=== PATIENT | male | born 1975 | race Caucasian/White ===

== ENCOUNTER 2018-12-04 21:32 | Observation (INO) ==
[2018-12-04] MEDS ORDERED: NS 1,000 ML IV ONE (23:39)
[2018-12-04] MEDS ORDERED: TORADOL IV ONE (23:40)
[2018-12-04] MEDS ORDERED: SODIUM CHLORIDE 0.9% INJ ONE (23:40)
[2018-12-04] MEDS ORDERED: ZOFRAN IV ONE (23:40)
[2018-12-04] MEDS ORDERED: NEXIUM IV ONE (23:40)
[2018-12-05] MEDS ORDERED: PEPCID IV ONE (00:06)
[2018-12-05] MEDS ORDERED: SODIUM CHLORIDE 0.9% INJ ONE (00:06)
[2018-12-05 00:47] LABS: BASO# 0.02 X1000 (0.0-0.2); BASO% 0.1 % (0.0-0.8); EOS# 0.05 X1000 (0.0-0.7); EOS% 0.3 % (0.0-10.0); HEMATOCRIT 47.2 % (42.0-52.0); HEMOGLOBIN 16.3 g/dL (14.0-18.0); IMM GRAN# 0.03 X1000 (0.0-0.04); IMM GRAN% 0.2 % (0.0-0.5); LYMPH# 0.46 X1000 (1.2-3.4); LYMPH% 2.7 % (20.5-51.1); MCH 30.3 PG (27-31); MCHC 34.5 g/dL (33-37); MCV 87.7 FL (81-99); MONO# 0.81 X1000 (0.11-0.59); MONO% 4.8 % (1.7-9.3); MPV 9.8 FL (7.4-10.4); NEUT# 15.45 X1000 (1.4-6.5); NEUT% 91.9 % (42.2-75.2); PLT 267 X1000 (130-400); RBC 5.38 XMIL (4.7-6.1); RDW 12.9 % (11.5-14.5); WBC 16.82 X1000 (4.8-10.8)
[2018-12-05 01:12] LABS: AGAP 12; ALB/GLOB RATIO 2.5; ALBUMIN 4.8 g/dL (3.5-5.0); ALKALINE PHOSPHATASE 79 U/L (32-122); BUN 18 mg/dL (8-22); CALCIUM 9.6 mg/dL (8.8-10.2); CHLORIDE 104 mmol/L (98-107); CK PROFILE 147 U/L (24-204); COSMO 284; CREATININE 0.9 mg/dL (0.7-1.2); ESTIMATED GFR > 60; GLUCOSE 116 mg/dL (70-104); GOT 16 U/L (10-34); GPT 13 U/L (10-44); POTASSIUM 4.5 mmol/L (3.5-5.1); SODIUM 141 mmol/L (136-145); TCO2 25 mmol/L (25-35); TOTAL BILIRUBIN 0.58 mg/dL (0.20-1.00); TOTAL PROTEIN 6.7 g/dL (6.3-8.3)
[2018-12-05] MEDS ORDERED: ROCEPHIN 1 GM in NS 50 ML IV ONE (01:45)
[2018-12-05] MEDS ORDERED: DOXYCYCLINE 200 MG in NS 250 ML IV ONE (01:53)
--- NOTE | 2018-12-05 02:00 | PROVIDER DOCUMENTATION ---
This chart was entered by Areli Bob Scribe, acting as scribe for Sole Moody MD. HPI-Syncope/Dizziness - General Chief Complaint: Syncope Stated Complaint: PASSED OUT AT WORK Time Seen by Provider: 12/04/18 23:20 Source: patient, family Allergies/Adverse Reactions: Patient Allergies Allergy/AdvReac Type Severity Reaction Status Date / Time codeine Allergy Mild ITCHING Verified 12/05/18 00:14 morphine Allergy Mild ITCHING Verified 12/05/18 00:14 Home Medications: Home Medication List Medication Instructions Recorded Confirmed Last Taken Type Hydrocodone/Acetaminophen [[place] 1 each PO 4XDAY 12/26/13 01/25/17 01/24/17 09:00 History 10-325 Tablet] Pantoprazole [Protonix] 40 mg PO DAILY@0700 #30 tablet 01/25/17 Unknown Rx - History of Present Illness-Syncope/Dizzy Nature of Presenting Problem: 42 y/o male presents to ED with syncope onset this afternoon. Pt reports he was outside working in the heat. passed out in for 10mins. brought in by his son to cool area. then this evening pt states he has experienced body aches, chills, headache, and N/V since the episode. Pt is alert and oriented. If witnessed syncope, by whom?: coworkers Prior Episodes: reports: no prior history Onset/Duration: reports: this afternoon Timing: reports: still present Position/Activity at time of episode: reports: standing Symptoms prior to episode: reports: none Context: reports: lost consciousness Loss of Consciousness: brief (seconds) Location of injury. (If syncope resulted in an injury.): reports: none Current Symptoms: reports: chills, nausea, vomiting, headache Recently Seen Here or By Another Healthcare Provider: No Review of Systems - Adult - REVIEW OF SYSTEMS - ADULT Constitutional: reports: chills. denies: fever Eyes: reports: no symptoms reported Ears, Nose, Mouth & Throat: reports: no symptoms reported Cardiovascular: denies: chest pain, palpitations Respiratory: denies: cough, shortness of breath Gastrointestinal: reports: nausea, vomiting. denies: abdominal pain, diarrhea Genitourinary: reports: no symptoms reported Musculoskeletal: reports: other (body aches). denies: back pain, joint pain Integumentary: reports: no symptoms reported Neurological: reports: headache/migraines, syncope. denies: dizziness/vertigo, seizure Psychiatric: reports: no symptoms reported Endocrine: reports: no symptoms reported Hematologic/Lymphatic: reports: no symptoms reported Allergic/Immunologic: reports: no symptoms reported All Other Systems: Reviewed and Negative Past History - Adult - PAST MEDICAL HISTORY-ADULT Review of Records: reports: Old Records Reviewed, Nursing Assessment Review, Medications Reviewed Major Childhood Illnesses: reports: denies history Cardiovascular: reports: denies history Respiratory: reports: denies history Gastrointestinal: reports: GERD Obstetrical/Gynecological: reports: denies history Genitourinary: reports: denies history Musculoskeletal: reports: chronic pain (neck and back pain), neck/back injury Neurological: reports: denies history Endocrine/Immune: reports: denies history Other Conditions: reports: denies history - PRIOR SURGERIES/PROCEDURES Surgical/Procedure History: reports: orthopedic (extremity), back/neck - IMMUNIZATION STATUS Childhood Immunizations: See Nurse Assessment Flu Vaccine: See Nurse Assessment - FAMILY HISTORY Family History: reviewed, not pertinent - SOCIAL HISTORY Smoking: greater than 1 pack/day Provider spent 3-5 mins advising pt. on dangers of tobacco.: Discussed manners to quit use, and f/u contacts for add'l counseling. Substance Use: none/never Alcohol Use Frequency: never Living Situation: family Physical Exam-General - PHYSICAL EXAM-ADULT Initial Vital Signs Reviewed: Yes - CONSTITUTIONAL General Appearance: appears well, alert, no apparent distress - EYES Eyes: PERRL/EOMI, pink conjunctivae - HEAD, EARS, NOSE, MOUTH & THROAT HENMT: normocephalic/atraumatic, normal ENT inspection. negative: moist mucous membranes (dry) - NECK Neck: non-tender, full range of motion - RESPIRATORY Respiratory: chest non-tender, lungs clear, normal breath sounds - CARDIOVASCULAR Cardiovascular: normal peripheral pulses, regular rate, rhythm - GASTROINTESTINAL (ABDOMEN) Abdominal Exam: normal bowel sounds, soft, tenderness (epigastric) - MUSCULOSKELETAL Back Exam: normal inspection, no CVA tenderness, no vertebral tenderness Extremity: normal range of motion, non-tender, normal gait - SKIN Integumentary: normal color, warm/dry - NEUROLOGIC Neurologic: order puller II-XII nml as tested, grossly normal, no motor/sensory deficits - PSYCHIATRIC Psych/Mental Status: normal mood/affect, normal thought content, normal thought process, oriented x 3 Progress - PLAN OF CARE/RESULTS Progress/Plan/Lab Results: Vital Signs - 8 hr 12/04/18 21:54 Temperature 97.8 F Pulse Rate 87 Respiratory Rate 20 Blood Pressure 131/77 O2 Sat by Pulse Oximetry 100 12/05/18 00:07 Influenza Screen - Final Nasopharyngeal Laboratory Results - last 24 hr 12/04/18 12/05/18 12/05/18 22:11 00:07 00:07 WBC 16.82 H RBC 5.38 Hgb 16.3 Hct 47.2 MCV 87.7 MCH 30.3 MCHC 34.5 RDW Std Deviation 12.9 Plt Count 267 MPV 9.8 Immature Gran % (Auto) 0.2 Neut % (Auto) 91.9 H Lymph % (Auto) 2.7 L Starke % (Auto) 4.8 Eos % (Auto) 0.3 Baso % (Auto) 0.1 Immature Gran # (Auto) 0.03 Neut # (Auto) 15.45 H Lymph # (Auto) 0.46 L Starke # (Auto) 0.81 H Eos # (Auto) 0.05 Baso # (Auto) 0.02 Sodium 141 Potassium 4.5 Chloride 104 Carbon Dioxide 25 Anion Gap 12 BUN 18 Creatinine 0.9 Estimated GFR/1.73 m2 > 60 BUN/Creatinine Ratio 20 Glucose 116 H POC Glucose 108 H Calculated Osmolality 284 Calcium 9.6 Total Bilirubin 0.58 AST 16 ALT 13 Alkaline Phosphatase 79 Creatine Kinase 147 Troponin T Total Protein 6.7 Albumin 4.8 Globulin 1.9 Albumin/Globulin Ratio 2.5 12/05/18 00:07 WBC RBC Hgb Hct MCV MCH MCHC RDW Std Deviation Plt Count MPV Immature Gran % (Auto) Neut % (Auto) Lymph % (Auto) Starke % (Auto) Eos % (Auto) Baso % (Auto) Immature Gran # (Auto) Neut # (Auto) Lymph # (Auto) Starke # (Auto) Eos # (Auto) Baso # (Auto) Sodium Potassium Chloride Carbon Dioxide Anion Gap BUN Creatinine Estimated GFR/1.73 m2 BUN/Creatinine Ratio Glucose POC Glucose Calculated Osmolality Calcium Total Bilirubin AST ALT Alkaline Phosphatase Creatine Kinase Troponin T < 0.010 Total Protein Albumin Globulin Albumin/Globulin Ratio Orders Category Date Time Status Cardiac Monitoring DIRECTED Care 12/05/18 01:46 Active IV Insertion ORDERED Care 12/05/18 01:46 Active Notify MD of + Sepsis Screen NOW Care 12/05/18 01:46 Active Notify Physician As Ordered Care 12/05/18 01:46 Active CHEST-1 VIEW [RAD] Stat Exams 12/05/18 01:[address] HEAD W/O CONTRAST [CT] Stat Exams 12/04/18 23:39 Taken BLOOD CULTURE [BLDCUL] Stat Lab 12/05/18 01:46 Uncollected CBC WITH DIFF [HEME] Stat Lab 12/05/18 00:07 Completed CK PROFILE [SP CHEM] Stat Lab 12/05/18 00:07 Completed COMPREHENSIVE METABOLIC PANEL [CHEM] Stat Lab 12/05/18 00:07 Completed Flu Swab [INFLUENZA SCREEN A/B] Stat Lab 12/05/18 00:07 Completed LACTATE, PLASMA [CHEM] Q3H Lab 12/05/18 02:00 Uncollected LACTATE, PLASMA [CHEM] Q3H Lab 12/05/18 05:00 Uncollected LACTATE, PLASMA [CHEM] Q3H Lab 12/05/18 08:00 Uncollected MAGNESIUM [CHEM] Stat Lab 12/05/18 01:46 Uncollected PROTIME WITH INR [COAG] Stat Lab 12/05/18 01:46 Uncollected PTT [COAG] Stat Lab 12/05/18 01:46 Uncollected TROPONIN T Stat Lab 12/05/18 00:07 Completed URINALYSIS W/POSS RFLX CULT [URINALYSIS] Stat Lab 12/04/18 23:39 Uncollected URINE DRUG SCREEN Stat Lab 12/04/18 23:39 Uncollected 0.9% Sodium Chloride Inj [Ns] 1,000 ml Med 12/04/18 23:39 Discontinued IV 999 mls/hr CefTRIAXONE [Rocephin] 1 gm Med 12/05/18 01:45 Stop Req 0.9% Sodium Chloride Inj [Ns] 50 ml IV NOW Doxycycline 200 mg Med 12/05/18 01:53 Ordered 0.9% Sodium Chloride Inj [Ns] 250 ml IV NOW Famotidine [Pepcid] Med 12/05/18 00:06 Discontinued 20 mg IV NOW ONE Ketorolac [Toradol] Med 12/04/18 23:40 Discontinued 30 mg IV NOW ONE Ondansetron [Zofran] Med 12/04/18 23:40 Discontinued 4 mg IV NOW ONE Sodium Chloride 0.9% Med 12/05/18 00:06 Discontinued 5 - 10 ml INJ NOW ONE Sodium Chloride 0.9% Med 12/04/18 23:40 Discontinued 5 ml INJ NOW ONE Oxygen Device Stat Oth 12/05/18 01:46 Active EKG [EKG] Stat Ther 12/04/18 21:59 Ordered Result Diagrams: 12/05/18 00:07 12/05/18 00:07 - REASSESSMENT Reassessment #1 Time Reassessed: 01:53 Status: improving (with abd pain but the headache persists. reports pt had 2 tick bites and s/p removal yesterday, will prophylactically pt with doxycycline. will observe pt.) - EKG 1 Time of EKG reading by physician:: 01:58 EKG Read and Signed by:: Sole Moody EKG Interpretation (*Must complete 3 of following elements*): Normal Rate: 82 Rhythm: nsr with sinus arrhythmia [place]: normal QRS: normal GA Interval: normal ST Wave: normal - XRAY 1 XRAY Study: Chest Impression: See EMR Report - CT/MRI 1 CT Study: Cervical Spine, Head Impression: See EMR Report (IMPRESSION: 1. No acute intracranial hemorrhage or process identified. 2. Acute right maxillary sinusitis. Small maxillary retention cysts are also seen. -radiology report) - CONSULTS/PCP/HOSPITALIST Notification #1 *Consult/PCP/Hospitalist*: dr. Ramirez Time Discussed: 01:59 (heat exhaustion and syncope) Consult Disposition: Admit Departure - Departure Date of Disposition Decision: 12/05/18 Time of Disposition Decision: 01:54 DIAGNOSIS: Heat exhaustion, Syncope Disposition: ADMITTED INPATIENT 09 Certified Medical Emergency: Emergent Condition: Stable Referrals and Follow-Ups: None,PCP [Primary Care Provider] - Call for Appoint. 1-2days Discharge Education: Steps to Quit Smoking, [id number] - Critical Care Note This patient required my direct & personal management of CC.: No Attestation - Physician/ JAMIL Attestation Patient care was provided by Advanced Practice Provider:: No The physician spent face to face time with patient:: Yes Advanced Practice Provider documentation review:: Supervising physician onsite and consulted in the evaluation and care of this patient. The physician did have a face to face encounter with the patient. This chart was documented by the indicated scribe, (Areli Bob, Scribe) and accurately reflects the services I performed and decisions made by me, Sole Moody MD, as attested by the provider's signature.
[2018-12-05] MEDS ORDERED: TYLENOL PO PRN (03:28)
[2018-12-05] MEDS: NS 1,000 ML IV SCH ×2 (04:54→16:51)
--- NOTE | 2018-12-05 06:28 | Diag Imaging Result Doc PS360 ---
CHEST-1 VIEW - 12/05/2018 INDICATION: infection COMPARISON: 01/25/2017 FINDINGS: The lungs are normally expanded and clear. Heart size and mediastinal contours are normal. No pneumothorax or pleural effusion. IMPRESSION: Negative exam. Electronically signed by Yossi Dunbar 12/05/2018 6:26 AM
--- NOTE | 2018-12-05 06:48 | HISTORY AND PHYSICAL ---
CHIEF COMPLAINT: Syncope. 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 He was at the job site yesterday working in the heat when he became dizzy, felt as if he passed out. Apparently he had a 10-second episode where he had loss of consciousness. He stated that his son helped him to a cool area. He started having body aches, chills and headache and nausea and vomiting times a couple episodes. He came into the emergency room. He was afebrile. Vital signs were within normal limits. He was alert and oriented times 3. Chest x- ray showed no acute disease. Did have mildly elevated white blood cell count of 16.82 which is likely reactive. He told the ER provider that he was bitten by two ticks at the worksite. Apparently she was concerned for possibly Lyme disease, gave him doxycycline. At any rate, will admit the patient in observation status for further evaluation and treatment. PAST MEDICAL HISTORY: Denies. PREVIOUS SURGICAL HISTORY: Lumbar spine and neck surgery. ALLERGIES: Codeine and morphine. HOME MEDICATION: Denies. FAMILY HISTORY: States his father , that he had schizophrenia and was a heavy drinker. Denies any other chronic illness. SOCIAL HISTORY: Smoke a pack a day. No alcohol. No illicit drugs. REVIEW OF SYSTEMS: Fourteen-point review of systems conducted with the patient. Pertinent positives listed above in the HPI. All other systems reviewed and found to be negative. PHYSICAL EXAMINATION: VITAL SIGNS: Temperature 98.7, pulse 61, respirations 18, blood pressure 103/65, oxygen saturation 100% on room air. GENERAL: A 42-year-old male lying in the ER stretcher, answers all questions appropriately, he is alert and oriented times 3, in no acute distress. HEENT: Head is atraumatic, normocephalic. Pupils equal, round, reactive to light. Extraocular eye movement is intact. Sclerae are anicteric. Conjunctiva is pink. Oral mucosa is dry. NECK: Supple. No JVD. No thyromegaly. Trachea is midline. No cervical lymphadenopathy. CARDIAC: S1, S2 appreciated. No murmurs, gallops, rubs. LUNGS: Clear to auscultation bilaterally. No rhonchi, wheeze, rales. Symmetric rise and fall with respirations. ABDOMEN: Soft, nondistended, nontender. Bowel sounds present in all 4 quadrants. Normoactive. No pulsatile mass, no organomegaly. SKIN: Warm, dry and intact. No acute lesions or rash. No Bullseye shaped rashes at the site where the ticks had been. NEUROLOGICAL: Alert and oriented times 3. Cranial nerves II through XII grossly intact. EXTREMITIES: No clubbing, cyanosis or edema. Two-plus pedal pulses. DIAGNOSTIC DATA: Chest x-ray: No acute disease. LABORATORY DATA: WBC 16.82. Chemistry panel within normal limits other than a glucose of 116. ASSESSMENT AND PLAN: 1. Heat related illness. Patient was given fluids in the emergency room. Will continue gentle fluid hydration. 2. Nausea and vomiting. Zofran as needed. 3. Tobacco abuse. Will give 21 mg nicotine patch daily. 4. Leukocytosis. This is of unknown etiology. Patient was given doxycycline and Rocephin in the emergency room. The ER provider had noted this was prophylactic related to the tick bites. Will continue doxycycline and 10-day Lyme disease panel. However, the patient did not have any symptoms that feel consistent with Lyme disease. Patient will be admitted to the Medical Floor in observation status where he should be able to go home today. Further recommendations per patient clinical course. Dictated by PAMELA Stevens for Flako Ramirez MD I have performed a face to face diagnostic evaluation. Labs/ xrays- reviewed. Exam- chest- clear, CV- regular. A/P- Heat Exhaustion- Admit, symptomatic treatment, IV fluids, antiemetics. Dr. Ramirez cc: PAMELA Stevens MD [facility]
--- NOTE | 2018-12-05 07:18 | EKG Report ---
Test Performed on : 12/04/2018 10:03:55 PM Test Reason : SYNCOPE Blood Pressure : / mmHG Vent. Rate : 082 BPM Atrial Rate : 082 BPM P-R Int : 184 ms QRS Dur : 096 ms QT Int : 354 ms P-R-T Axes : 058 028 060 degrees QTc Int : 413 ms Normal sinus rhythm. with sinus arrhythmia. Normal ECG When compared with ECG of 25-JAN-2017 08:13, No significant change was found Unconfirmed Result
--- NOTE | 2018-12-05 08:27 | Diag Imaging Result Doc PS360 ---
EXAM: CT HEAD W/O CONTRAST INDICATION: syncope TECHNIQUE: This exam was performed using automated exposure control, adjustment of mA or kV according to patient size, and/or use of iterative reconstruction technique. COMPARISON: None. FINDINGS: There is no definite acute infarct given the limited sensitivity of CT versus MRI. There is no discrete intracranial mass, mass effect, or intracranial hemorrhage. There is a moderate-sized right maxillary sinus mucus retention cyst and a small left maxillary sinus mucus retention cyst. There is an air-fluid level in the right maxillary sinus suggesting a possible component of acute sinusitis. Surrounding soft tissues and bony structures are essentially unremarkable, otherwise. IMPRESSION: 1.No evidence of acute intracranial pathology. 2.Maxillary sinus mucus retention cysts and possible superimposed acute right maxillary sinusitis. Please correlate clinically. Electronically signed by Aron Flores 12/05/2018 8:24 AM
[2018-12-05 09:19] LABS: UR AMPHETAMINES QUAL NONE DETECTED (NONE DETECT); UR BARBITUATES QUAL NONE DETECTED (NONE DETECT)
[2018-12-05 09:20] LABS: UR BENZODIAZEPIN QUAL PRESUMPTIVE POSITIVE (NONE DETECT); UR CANNABINOIDS QUAL PRESUMPTIVE POSITIVE (NONE DETECT); UR COCAINE QUAL NONE DETECTED (NONE DETECT); UR METHADONE QUAL NONE DETECTED (NONE DETECT); UR OPIATES QUAL PRESUMPTIVE POSITIVE (NONE DETECT); UR OXYCODONE QUAL NONE DETECTED (NONE DETECT); UR PCP QUAL NONE DETECTED (NONE DETECT)
[2018-12-05] MEDS: DOXYCYCLINE PO SCH ×2 (09:39→20:53)
[2018-12-05] MEDS: AUGMENTIN PO SCH ×2 (09:39→20:52)
[2018-12-05] MEDS: NICODERM PATCH TD SCH ×2 (09:41→18:01)
[2018-12-05 11:13] LABS: INR 0.97; PROTIME 13.7 Seconds (11.0-16.0); PTT 28.4 Seconds (22.3-41.8)
[2018-12-05 11:15] LABS: UR EPITHELIAL CELLS <10 /HPF (<10); URINE BACTERIA NEGATIVE /HPF; URINE RBC <10 /HPF (<10); URINE SOURCE CLEAN CATCH; URINE WBC <10 /HPF (<10)
[2018-12-05 11:16] LABS: COLOR YELLOW; TURBIDITY URINE CLEAR (CLEAR)
[2018-12-05 11:17] LABS: BILIRUBIN URINE SMALL (NEGATIVE); BLOOD URINE NEGATIVE (NEGATIVE); GLUCOSE URINE TRACE mg/dL (NEGATIVE); KETONE URINE 40 mg/dL (NEGATIVE); LEUKOCYTES URINE NEGATIVE (NEGATIVE); NITRITE URINE NEGATIVE (NEGATIVE); PH URINE 5.5; PROTEIN URINE 30 mg/dL (NEGATIVE); SP GRAVITY URINE 1.042; UROBILINOGEN URINE 2 mg/dL (NORMAL)
[2018-12-05] MEDS: ZOFRAN IV PRN ×2 (12:25→18:01)
[2018-12-05] MEDS: NORCO-10 PO SCH (20:52)
[2018-12-05] MEDS: LYRICA PO SCH (20:53)
[2018-12-06] MEDS: NS 1,000 ML IV SCH (06:07)
[2018-12-06 08:11] LABS: AGAP 8; BUN 13 mg/dL (8-22); CALCIUM 8.4 mg/dL (8.8-10.2); CHLORIDE 106 mmol/L (98-107); COSMO 277; CREATININE 0.8 mg/dL (0.7-1.2); ESTIMATED GFR > 60; GLUCOSE 95 mg/dL (70-104); POTASSIUM 3.9 mmol/L (3.5-5.1); SODIUM 139 mmol/L (136-145); TCO2 25 mmol/L (25-35)
[2018-12-06 08:12] LABS: BASO# 0.02 X1000 (0.0-0.2); BASO% 0.2 % (0.0-0.8); EOS# 0.17 X1000 (0.0-0.7); HEMATOCRIT 41.2 % (42.0-52.0); HEMOGLOBIN 13.8 g/dL (14.0-18.0); IMM GRAN# 0.02 X1000 (0.0-0.04); IMM GRAN% 0.2 % (0.0-0.5); LYMPH# 1.36 X1000 (1.2-3.4); LYMPH% 15.8 % (20.5-51.1); MCH 30.3 PG (27-31); MCHC 33.5 g/dL (33-37); MCV 90.4 FL (81-99); MONO% 8.1 % (1.7-9.3); MPV 10.1 FL (7.4-10.4); NEUT# 6.33 X1000 (1.4-6.5); NEUT% 73.7 % (42.2-75.2); PLT 218 X1000 (130-400); RBC 4.56 XMIL (4.7-6.1)
[2018-12-06] MEDS: AUGMENTIN PO SCH (08:30)
[2018-12-06] MEDS: NORCO-10 PO SCH ×2 (08:30→12:38)
[2018-12-06] MEDS: DOXYCYCLINE PO SCH (08:30)
[2018-12-06] MEDS: LYRICA PO SCH (08:30)
[2018-12-06] MEDS: NICODERM PATCH TD SCH (08:31)
[2018-12-06] MEDS ORDERED: VOLTAREN 1% GEL TOP SCH (09:00)
[2018-12-06] MEDS ORDERED: ZANTAC PO SCH (09:00)
[2018-12-06 12:47] VITALS: BP 124/76
[2018-12-06 14:09] LABS: LYME DISEASE SCREEN SEE COMMENTS
--- NOTE | 2018-12-08 13:41 | DISCHARGE SUMMARY ---
ADMISSION DATE: 12/05/2018 DISCHARGE DATE: 12/06/2018 FINAL DISCHARGE DIAGNOSES: 1. Syncope secondary to dehydration. 2. Dehydration. 3. Leukocytosis likely stress induced. 4. Acute maxillary sinusitis. 5. Gastroesophageal reflux disease. HOSPITAL COURSE: Mr. Skelton is a 42-year-old male with a history of prior back and neck surgery, who presented to the ER after having a syncopal episode. The patient was noted to be dehydrated on admission and was started on IV fluids. He was also noted to have a leukocytosis. A CT of the head was done that revealed maxillary sinusitis and the patient was started on Augmentin. The patient also had tick bites on his back that were itchy, but there was no evidence of erythema migrans seen. The patient was admitted to observation and hydrated. The following morning the patient's laboratory values were noted to be within normal limits and the patient was back to his baseline level of function. The patient was ultimately cleared for discharge home on 12/06/2018. DISCHARGE MEDICATIONS: 1. Zantac 150 mg p.o. daily. 2. Lyrica 75 mg oral twice a day. 3. Probiotic 1 tab oral twice a day. 4. Doxycycline 100 mg oral twice a day. 5. Augmentin 875 mg oral every 12 hours x7 days. 6. Wilton 10/325 one tab oral 4 times a day. DISCHARGE DIET: Regular diet. ACTIVITY: As tolerated. FOLLOWUP INSTRUCTIONS: The patient will need to follow up with his primary care physician in 1 week. cc: Amna Moore MD
== END 2018-12-06 12:49 | disposition home or self-care (01) ==
LOC: ED 21:32 → EDIPHOLD 12-05 02:57 → INTOOBSV 12-05 02:57 → SUPCPDRO 12-05 02:57 → SUATTDRO 12-05 02:57 → 3N 12-05 15:58
PROVIDERS: ATTEND Internal Medicine
CPT/HCPCS: 70450; 71010; 71045; 80048; 80053; 80101; 80301; 80307; 80324; 80345; 80346; 80353; 80358; 80361; 80365; 81001; 82550; 82948; 83605; 83735; 83992; 84443; 84484; 85025; 85610; 85730; 86618; 87040; 87275; 87276; 87804; 93005; 94761; 96361; 96365; 96366; 96375; 96376; 99285; A9270; G0378; G0431; G0434; G0479; G0480; J1885; J2405; J7030; J7050; S0028; XXXXX